=== PATIENT | male | born 1990 | race Two or more races ===

== ENCOUNTER 2018-06-20 23:55 | Emergency (ER) | payer MEDICAID ==
[2018-06-21] VITALS: RESP 18; O2SAT 97
--- NOTE | 2018-06-21 00:35 | ED PDOC ---
HPI: Psych/Substance Abuse Time Seen by Provider: 06/21/18 00:04 Chief Complaint (Nursing): Alcohol Ingestion Chief Complaint (Provider): alcohol ingestion ED Caveat: Uncooperative History Per: Patient History/Exam Limitations: no limitations Onset/Duration Of Symptoms: Hrs (today) Additional Complaint(s): Mauro Bui is a 28 year old male, with no significant past medical history, who was sent to the emergency department from [facility] for medical evaluation. Patient was found in the possession of cocaine and also intoxicated. He denies taking any drugs tonight but does admit to drinking alcohol. Patient has no physical complaints at this time. Patient is uncooperative with questioning, stating "I don't want to be here". PMD: None provided. Past Medical History Reviewed: Historical Data, Nursing Documentation, Vital Signs Vital Signs: Last Vital Signs Temp 98.9 F 06/20/18 23:58 Pulse 101 H 06/20/18 23:58 Resp 18 06/20/18 23:58 BP 123/105 H 06/20/18 23:58 Pulse Ox 97 06/20/18 23:58 - Medical History PMH: No Chronic Diseases - Surgical History Surgical History: No Surg Hx - Family History Family History: States: Unknown Family Hx - Allergies Allergies/Adverse Reactions: Allergies Allergy/AdvReac Type Severity Reaction Status Date / Time No Known Allergies Allergy Verified 06/20/18 23:57 Review of Systems Review Of Systems: ROS cannot be obtained secondary to pt's inabilty to answer questions. (not cooperative) Physical Exam - Reviewed Nursing Documentation Reviewed: Yes Vital Signs Reviewed: Yes - Physical Exam Comments: GENERAL APPEARANCE: Patient is awake, alert, oriented x 3, in no acute distress. SKIN: Warm, dry; (-) cyanosis EYES: (+) bilateral conjunctival injection NECK: Supple, FROM HEART AND CARDIOVASCULAR: (-) irregularity CHEST AND RESPIRATORY: (-) rales, (-) rhonchi, (-) wheezes; breath sounds equal bilaterally. Respirations even and nonlabored ABDOMEN: Soft, (-) distention, (-) tenderness, (-) guarding. NEURO AND PSYCH: Mental status as above. patient service associate: Intact. Pupils equal and reactive; EOMI; (-) facial asymmetry. Ambulatory in the ED with steady gait. Speech: clear. - ECG O2 Sat by Pulse Oximetry: 97 (RA) Pulse Ox Interpretation: Normal Medical Decision Making Medical Decision Making: Time: 00:05 Initial Impression: Alcohol ingestion, possible substance abuse. Initial Plan: -Re-evaluation -Repeat vitals 0030 Repeat HR: 78 Repeat BP: 142/60 On exam, patient remains AAOx3, in no acute distress. Lungs clear to auscultation, cardiac RRR, repeat neuro exam shows no focal findings. In light of clinical sobriety patient to be discharged. Patient states he will Uber home. Lab/Diagnostic results d/w the patient in great detail. Diagnosis of alcohol ingestion d/w the patient. Based on history, exam and diagnostic results, plan will be for outpatient follow up. Patient instructed to follow-up with pmd / referral provided / the clinic in 1- 2 days without fail. Return to the emergency room at any time for any new or worsening symptoms. Patient states he fully agrees with and understands discharge instructions. States that he agrees with the plan and disposition. Verbalized and repeated discharge instructions and plan. I have given the patient opportunity to ask any additional questions. ----- Scribe Attestation: Documented by Dylan Rosario, acting as a scribe for Akanksha Umanzor PA-C. Provider Scribe Attestation: All medical record entries made by the Scribe were at my direction and personally dictated by me. I have reviewed the chart and agree that the record accurately reflects my personal performance of the history, physical exam, medical decision making, and the department course for this patient. I have also personally directed, reviewed, and agree with the discharge instructions and disposition. Disposition - Clinical Impression Clinical Impression: Alcohol ingestion - Patient ED Disposition Is Patient to be Admitted: No Counseled Patient/Family Regarding: Studies Performed, Diagnosis, Need For Followup - Disposition Referrals: [facility] [Outside] Disposition: Routine/Home Disposition Time: 00:35 Condition: STABLE Additional Instructions: The emergency medical care you received today was directed towards the acute presenting symptoms. If you were prescribed any medication, please fill it and give as directed. It may take several days for your symptoms to resolve. Return to the Emergency Department at any time if symptoms worsen, do not improve, or if any other problems arise. Please contact your doctor in 2 days for re-evaluation and follow up / or call one of the physicians/clinics you have been referred to that are listed on the Patient Visit Information form that is included in your discharge packet. Bring any paperwork you were given at discharge with you along with any medications to your follow up visit. Our treatment cannot replace ongoing medical care by a primary care provider (PCP) outside of the emergency department. Instructions: Alcohol Use - When Is Drinking a Problem?, Effects of Alcohol on Your Health Forms: [employer] (Lao) Print Language: NEPALI - POA Present On Arrival: None
[2018-06-21 07:13] VITALS: BP 142/60; PULSE 78; TEMP 97.7
== END 2018-06-21 00:55 | disposition home or self-care (01) ==
LOC: H.ER 23:55
DX: F10.10 Alcohol abuse, uncomplicated (principal)